=== PATIENT | female | born 2000 ===

== ENCOUNTER 2022-03-10 10:45 | Outpatient (RCR) | payer OTHER, SELFPAY | END 2022-03-18 23:59 | disposition home or self-care (01) | LOC: SPT 10:45 | PROVIDERS: Visit Provider Orthopaedic Surgery | DX: M23.612 Other spontaneous disruption of anterior cruciate ligament of left knee (principal) | CPT/HCPCS: 97110; 97112; 97161 ==

== ENCOUNTER 2022-03-19 06:00 | Outpatient (RCR) | payer OTHER, SELFPAY | END 2022-04-18 23:59 | disposition home or self-care (01) | LOC: SPT 06:00 | PROVIDERS: Visit Provider Orthopaedic Surgery | DX: Z98.890 Other specified postprocedural states (principal); S83.512D Sprain of anterior cruciate ligament of left knee, subsequent encounter; X58.XXXD Exposure to other specified factors, subsequent encounter; M25.562 Pain in left knee | CPT/HCPCS: 97110; 97112 ==

== ENCOUNTER 2022-04-19 06:00 | Outpatient (RCR) | payer OTHER, SELFPAY | END 2022-05-18 23:59 | disposition home or self-care (01) | LOC: SPT 06:00 | PROVIDERS: Visit Provider Orthopaedic Surgery | DX: Z98.890 Other specified postprocedural states (principal); S83.512D Sprain of anterior cruciate ligament of left knee, subsequent encounter; M25.562 Pain in left knee; X58.XXXD Exposure to other specified factors, subsequent encounter | CPT/HCPCS: 97110; 97112 ==

== ENCOUNTER 2022-05-19 06:00 | Outpatient (RCR) | payer OTHER, SELFPAY | END 2022-06-18 23:59 | disposition home or self-care (01) | LOC: SPT 06:00 | PROVIDERS: Visit Provider Orthopaedic Surgery | DX: Z98.890 Other specified postprocedural states (principal); S83.512D Sprain of anterior cruciate ligament of left knee, subsequent encounter; X58.XXXD Exposure to other specified factors, subsequent encounter; M25.562 Pain in left knee | CPT/HCPCS: 97110; 97112; 97530 ==

== ENCOUNTER 2022-06-19 06:00 | Outpatient (RCR) | payer OTHER, SELFPAY | END 2022-07-19 23:59 | disposition home or self-care (01) | LOC: SPT 06:00 | PROVIDERS: Visit Provider Orthopaedic Surgery | DX: Z47.1 Aftercare following joint replacement surgery (principal); Z98.890 Other specified postprocedural states | CPT/HCPCS: 97110; 97112; 97530; G0283 ==

== ENCOUNTER 2022-07-20 06:00 | Outpatient (RCR) | payer OTHER, SELFPAY | END 2022-08-16 23:59 | disposition home or self-care (01) | LOC: SPT 06:00 | PROVIDERS: Visit Provider Orthopaedic Surgery | DX: Z98.890 Other specified postprocedural states (principal) | CPT/HCPCS: 97110; 97530 ==

== ENCOUNTER 2022-08-17 06:00 | Outpatient (RCR) | payer OTHER, SELFPAY | END 2022-09-16 23:59 | disposition home or self-care (01) | LOC: SPT 06:00 | PROVIDERS: Visit Provider Orthopaedic Surgery | DX: Z98.890 Other specified postprocedural states (principal); M23.612 Other spontaneous disruption of anterior cruciate ligament of left knee | CPT/HCPCS: 97110 ==

== ENCOUNTER 2022-09-17 06:00 | Outpatient (RCR) | payer OTHER, SELFPAY | END 2022-10-11 23:59 | disposition home or self-care (01) | LOC: SPT 06:00 | PROVIDERS: Visit Provider Orthopaedic Surgery | DX: Z47.89 Encounter for other orthopedic aftercare (principal); Z98.890 Other specified postprocedural states | CPT/HCPCS: 97110 ==